=== PATIENT | male | born 1975 | race Two or more races ===

== ENCOUNTER 2019-01-14 22:08 | Emergency (ER) | payer MEDICAID, OTHER ==
[~2019-01-14] VITALS: Ht 170.2 cm; Wt 86.2 kg
[2019-01-15 01:29] VITALS: BP 137/77
[2019-01-15] MEDS ORDERED: HYDROcodone-ACET 5/325MG TAB PO ONE (01:45)
[2019-01-15] MEDS ORDERED: IBUPROFEN 600 MG TAB PO ONE (01:45)
[2019-01-15] MEDS ORDERED: cefTRIAXone SOD 1,000 MG VL IM ONE (01:45)
[2019-01-15] MEDS ORDERED: methylPREDNISolone SOD SUCC 125 MG/2 ML VL IM ONE (01:45)
[2019-01-15] MEDS ORDERED: ONDANSETRON ODT 4 MG TAB PO ONE (02:00)
== END 2019-01-15 02:17 | disposition home or self-care (01) ==
LOC: ER 22:08
DX: J06.9 Acute upper respiratory infection, unspecified (principal); R51 Headache
CPT/HCPCS: 70450; 74176; 96372; 99284; J0696; J2930; Q0162